=== PATIENT | male | born 1960 | race Caucasian/White ===

== ENCOUNTER 2017-08-09 06:50 | Day surgery (SDC) | payer OTHER ==
[~2017-08-09 06:50] MED LIST: EPINEPHRINE IJ PRN; KETOROLAC TROMETHAMINE IJ PRN; NORMAL SALINE IJ PRN; RINGER'S SOLUTION,LACTATED 1,000 ML IV PRN; ceFAZolin SODIUM 1 GM VIAL IV PRN
[2017-08-09] MEDS ORDERED: RINGER'S SOLUTION,LACTATED 1,000 ML IV ONE (07:30)
--- NOTE | 2017-08-09 08:53 | OR ---
Operative Report - Dictated Report Narrative: Date: 08/09/2017 Physician: Stanley Alegria M.D. Resident Programs Assistant: Chester Baker PA-C Preoperative diagnosis: Right Knee medial meniscus tear Postoperative diagnosis: Right Knee medial meniscus tear Procedure: Right knee arthroscopy with partial medial meniscectomy Anesthesia: MAC Complications: None Estimated blood loss: Minimal Tourniquet time: Specimens: None Retained implants: None Drains: None Indications: Bethel Is a 56 year-old male who has been followed in my clinic with complaints of knee pain consistent with suspected medial meniscal pathology following a twisting injury at work. Physical exam and diagnostic imaging were consistent with these complaints and concern for medial meniscal pathology. Conservative measures have failed including, but not limited to, passage of time, activity modification, and medications. The risks, benefits, and alternatives were discussed in clinic. The risks being , bleeding, infection, blood clots, nerve, tendon, ligament, blood vessel injury, persistent pain, arthrosis, need for additional procedures, and persistent symptoms. Consent was obtained in the clinic. Procedure: After marking the correct extremity in the preoperative holding area, a timeout was performed in the operating room. IV antibiotics consisting of 2 g of Ancef were administered prior to the procedure. A well-padded tourniquet was applied to the operative upper thigh. The leg was prepped and draped in a standard sterile fashion. A delvis incision was made for inferior lateral portal. A blunt trocar and cannula was introduced into the knee. The suprapatellar pouch revealed no loose bodies. The medial patella facet showed no significant chondral changes. The lateral patella facet showed grade 1 chondral changes. The trochlea showed grade 1 and a focal area of grade 2 chondral change approximately 1 cm in diameter. The lateral gutter revealed no loose bodies. The medial gutter revealed no loose bodies. The medial joint space was then entered utilizing a lateral post and valgus stress. A spinal needle was utilized for guidance into placement of an anterior medial portal. This was placed just superior to the medial meniscus ensuring that we could reach the posterior aspect of the medial joint space. A delvis incision was made in the site, and the probe was introduced to the knee. The medial joint space was examined, and the medial femoral condyle showed grade 1 chondral changes. The medial tibial plateau showed scattered grade 2 chondral change. The medial meniscus demonstrated a complex tear of the posterior horn extending just into the body of the meniscus comprise primarily of a horizontal cleavage component as well as a large unstable flap of the posterior horn. The notch was then examined, and the ACL was noted to be intact. The PCL was noted to be intact. The lateral joint space was then examined using a varus force in the figure 4 position. Lateral femoral condyle showed no significant chondral changes. Lateral tibial plateau showed in 1 chondral changes. The lateral meniscus showed pathology. Having identified the surgical pathology, a series of biters and marcia were utilized in order to debride the medial meniscus. Once it was felt that we adequately addressed the pathology, the knee was thoroughly irrigated. The fluid was evacuated with the shaver ensuring that we had removed all meniscal, chondral, and any other loose bodies. A final evaluation of the joint showed no additional pathology. The fluid was then evacuated of the knee, and the trocar and camera were removed from the joint. The wounds were closed with interrupted 4-0 nylon. Dressings consisting of Xeroform, 4 x 4 , ABD, soft roll, and an Aaron were applied. All sponge, needle, blade, and instrument counts were correct prior to closing the wounds. The patient was awoken and transferred to the post-anesthesia care unit in stable condition.
[2017-08-09] MEDS ORDERED: RINGER'S SOLUTION,LACTATED 1,000 ML IV PRN (09:14)
[2017-08-09] MEDS ORDERED: oxyCODONE HCL/ACETAMINOPHEN 1 TAB TABLET PO PRN (09:16)
[2017-08-09] MEDS ORDERED: HYDROmorphone HCL 2 MG/ML VIAL IV PRN (09:16)
[2017-08-09 15:06] VITALS: BP 118/78
== END 2017-08-09 06:51 | disposition home or self-care (01) ==
LOC: AMB 06:50
PROVIDERS: ATTEND Orthopaedic Surgery
PROC: 0SBC4ZZ Excision of Right Knee Joint, Percutaneous Endoscopic Approach (ICD-10-PCS; principal; 2017-08-09 08:00)
DX: M23.221 Derangement of posterior horn of medial meniscus due to old tear or injury, right knee (principal); F17.200 Nicotine dependence, unspecified, uncomplicated; Z68.23 Body mass index [BMI] 23.0-23.9, adult